=== PATIENT | female | born 2000 | race Two or more races ===

== ENCOUNTER 2024-05-11 15:01 | Emergency (ER) | payer MEDICAID ==
[~2024-05-11] VITALS: Ht 160 cm; Wt 69.4 kg
[2024-05-11] MEDS ORDERED: DIPH25CA83 PO (15:43)
[2024-05-11] MEDS ORDERED: FAMO40TA7 PO (15:43)
[2024-05-11 15:57] VITALS: BP 124/84; TEMP 97.9; O2SAT 98
== END 2024-05-11 15:57 | disposition home or self-care (01) ==
LOC: ER 15:07
DX: K13.0 Diseases of lips (principal)